=== PATIENT | male | born 1940 | race Caucasian/White ===

== ENCOUNTER → 2025-06-05 | Outpatient (REF) | payer MEDICAID, SELFPAY ==
[2025-06-05 08:03] LABS: Hematocrit 32.4 % (40-54); Hemoglobin 10.4 g/dL (13.0-16.5); Mean Corp Hgb Conc 32.1 g/dL (32-36); Mean Corpuscular Volume 88.8 fL (80-94); Mean Platelet Vol. 9.4 fl (6.2-12.0); Platelet Count 104 K/mm3 (150-450); RBC Distribution Width CV 13.6 % (11.6-14.6); RBC Distribution Width SD 44.7 fl (35.1-43.9); Red Blood Count 3.65 M/mm3 (4.6-6.2); White Blood Count 6.9 K/mm3 (4.4-11.0)
[2025-06-05 08:22] LABS: Anion Gap 11 (7-18); BUN 53 mg/dL (4-19); BUN/Creat Ratio 6.9 RATIO (10-20); Calcium,Total 8.6 mg/dL (7.6-11.0); Carbon Dioxide 28.4 mmol/L (20.0-29.0); Chloride 99 mmol/L (96-106); Glucose 110 mg/dL (70-99); Potassium 3.9 mmol/L (3.5-5.1)
== END | disposition home or self-care (01) ==
LOC: OLS.SANC 05:20
DX: I48.91 Unspecified atrial fibrillation (principal); D64.9 Anemia, unspecified; E11.22 Type 2 diabetes mellitus with diabetic chronic kidney disease; N18.4 Chronic kidney disease, stage 4 (severe); I12.9 Hypertensive chronic kidney disease with stage 1 through stage 4 chronic kidney disease, or unspecified chronic kidney disease; E78.5 Hyperlipidemia, unspecified
CPT/HCPCS: 36415; 80048; 85027